=== PATIENT | female | born 1965 | race Caucasian/White ===

== ENCOUNTER → 2019-11-16 10:02 | Outpatient (CLI) | payer OTHER, SELFPAY ==
[2019-11-17 07:46] LABS: COVID19 Sendout Not Detected (Not Detect)
== END ==
PROVIDERS: Visit Provider Registered Nurse
DX: Z01.812 Encounter for preprocedural laboratory examination (principal)
CPT/HCPCS: 87635

== ENCOUNTER 2019-11-18 12:08 | Day surgery (SDC) | payer OTHER, SELFPAY ==
[2019-11-15 14:43] VITALS: BMI 30.5
[2019-11-18] VITALS (22 sets, daily range): BP systolic 116–138; BP diastolic 79–94; PULSE 74–120; RESP 10–19; TEMP 36.2–37; O2SAT 85–98; BMI 30.5
--- NOTE | 2019-11-18 | DI.RAD.S_ITS ---
PROCEDURE: XR LUMBAR SPINE 1V INDICATIONS: L4-5 LAMINECTOMY TECHNIQUE: Single lateral views of the lumbar spine was acquired. COMPARISON: None. FINDINGS: Bones: Lateral view shows a metallic probe at the posterior elements of L5, centered at the pedicle level. Soft tissues: Overlying bowel gas pattern is normal. No suspicious soft tissue calcifications. IMPRESSION: Metallic probe localization at the posterior elements of L5 parallel to the pedicles. Dictated by: Soto Ford M.D. on 11/18/2019 at 14:58 Approved by: Soto Ford M.D. on 11/18/2019 at 14:58
[2019-11-18] MEDS: LACTATED RINGERS 1,000 ML 42 ML IV ×2 (12:46→14:34)
[2019-11-18] MEDS: CELECOXIB 200 MG CAPSULE 400 MG PO (12:51)
[2019-11-18] MEDS: ACETAMINOPHEN 325 MG TABLET 975 MG PO (12:51)
[2019-11-18] MEDS: SCOPOLAMINE 1 PATCH TOP (12:51)
[2019-11-18] MEDS: MIDAZOLAM 2 MG/2 ML VIAL IV (12:52)
--- NOTE | 2019-11-18 13:01 | PM.PREOP ---
Pre-operative Note COVID-19 COVID-19 status: Negative Result date/Date tested (Pos, Neg/Pending): 11/16/19 Interval Note History & Physical reviewed/Exam performed by Physician: Yes Changes to H&P: No
[2019-11-18] MEDS: GABAPENTIN 300 MG CAPSULE PO (13:03)
--- NOTE | 2019-11-18 13:13 | SUR.OPER ---
Prone on spine table, head in foam head support, padded chest and pelvic supports, gel pad at knees, lower legs supported by pillows; nipples, genitalia and toes free of pressure, arms secured on foam padded arm boards at <90 degrees abduction. Tape over blanket at thigh secured to table.
[2019-11-18] MEDS: CEFAZOLIN 2 GM/100 ML FROZ.PIGGY IV (13:24)
[2019-11-18] MEDS: BUPIVACAINE 0.25% (PF) 8 ML, fentaNYL 100 MCG INJ (13:51)
[2019-11-18] MEDS: VANCOMYCIN 1,000 MG VIAL 1000 MG TOP (13:51)
[2019-11-18] MEDS: SODIUM CHLORIDE 0.9% 1,000 ML, GENTAMICIN 80 MG IRR (13:52)
[2019-11-18] MEDS: THROMBIN (RECOMBINANT) 5,000 UNIT VIAL 5000 UNIT TOP (13:57)
--- NOTE | 2019-11-18 15:17 | P.OP_ITS ---
Operative Date/Time/Diagnoses Date of procedure: 11/18/19 Time of procedure: 15:17 Pre-op diagnosis: Recurrent lumbar disc herniation with radiculopathy Post-op diagnosis: same Procedure & Clinicians Procedure: Revision left L4-5 laminectomy diskectomy Use of microscope Placement of epidural catheter Same procedure as scheduled: Yes Indications: [age] year old female with intractable pain from recurrent disc herniation. They had failed conservative management and requested operative intervention. Risks and benefits of surgery were discussed and appropriate consents were obtained. Surgeon: Nicholas Morgan [employer] Teacher: Martin Ca Anesthesia Type: General Operative Notes Findings: None Closure Type: primary Specimen(s): none sent Estimated Blood Loss (mL): 20 Procedure in detail: Patient was brought to the operating room and intubated on the table. A time-out was performed. There were rolled over the well-padded prone position on the [place] table. The back was prepped and draped in standard sterile fashion. Preoperative antibiotics were given. Using fluoroscopy, a 3 cm incision was made to the well-marked left of the midline at the L4-5 level utilizing her previous incision. We used Bovie to come down to and split the fascia. We then used the NuVasive MaXcess dilators with fluoroscopy and then opened our retractors. The soft tissue was cleared off with Bovie, a marker was placed, an x-ray was taken to confirm positioning. We then brought in the microscope. A combination of high-speed bur and Kerrison were used to perform a revision left-sided hemilaminotomy and hemifacetectomy. There was a large amount of scar tissue from her previous surgery but we finally were able to the isolate the traversing and exiting nerve roots. 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 We continued working through the scar 1st from underneath and then above until we finally could retract the dura and root medially and expose our disc herniation. The disc was cleared with bipolar. A scalpel used to perform an annulotomy and a pituitary was used to perform the diskectomy. Several very large fragments were removed. The ball probe was swept underneath the dura along the disc to make sure there were no further loose fragments. This was also placed into the disc and moved around to make sure there were no further loose fragments. Once everything was adequately decompressed, the wound was copiously irrigated. This completed the revision diskectomy. An epidural catheter was filled with 100 mcg of fentanyl and 8 mL of 0.25% Marcaine. The dura was carefully depressed under the laminotomy site and the catheter was advanced 6 cm cephalad. The retractor was removed and the fascia was closed. The epidural catheter was then injected without resistance and removed. Vancomycin powder was placed in the wound. Superficial and skin were closed. Sterile dressing was placed. The patient was then rolled over, transferred to the stretcher, and brought to recovery room without complications. Complications: none Post-operative Condition: stable Disposition: PACU Plan for aftercare: Outpatient. Begin activity as tolerated at her 1st follow- up visit.
[2019-11-18] MEDS: HYDROMORPHONE 2 MG INJ IV ×2 (15:44→15:54)
[2019-11-18] MEDS: ONDANSETRON 4 MG/2 ML INJ IV (15:44)
--- NOTE | 2019-11-18 15:58 | SUR.PHASEI ---
Titrated oxygen down from 4 liters nasal cannula to 2 liters nasal cannula.
--- NOTE | 2019-11-18 16:07 | SUR.PHASEI ---
Encouraged deep breathing from patient due to desaturation of oxygen level to 89% on 2 liters. Patient following commands. Assisted patient with turning over to check her surgical dressing. Dressing to low back area clean, dry and intact. No drainage noted..
[2019-11-18] MEDS: OXYCODONE IR 5 MG TABLET PO (16:14)
--- NOTE | 2019-11-18 16:30 | SUR.PHASEI ---
called [facility] to verify that presriptions were available. Notified . Turned oxygen off to assess room air saturation. Encouraged deep breathing. Patient following instructions.
--- NOTE | 2019-11-18 16:39 | SUR.PHASEI ---
Unable to wean patient off oxygen completely. Placed patient back on oxygen at 1 liter via nasal cannula, repositioned patient in bed to increase lung expansion, and removed scopolamine patch from behind right ear.
--- NOTE | 2019-11-18 16:52 | SUR.PHASEI ---
Saltine crackers provided.
--- NOTE | 2019-11-18 16:57 | SUR.PHASEI ---
When patient nods off, patient's oxygen drops down to 84% on room air. Placed patient back on oxygen at 3 liters nasal cannula. Oxygen saturation up to 94% but patient unable to sustain acceptable saturation level when dosing off. Assisted patient with sitting forward to auscultate breath sounds. Breath sounds clear and equal bilaterally.
--- NOTE | 2019-11-18 17:38 | SUR.PHASEII ---
1730 moved patient to phase 2 recovery and placed patient on continuous pulse ox. Patient continues to use Incentive Spirometer as instructed. Patient drowsy but awake. Oxygen saturation 96% on room air after using spirometer. Called and provided update and also reviewed discharge instructions.
--- NOTE | 2019-11-18 17:39 | SUR.PHASEII ---
Assisted patient to bathroom to void.
--- NOTE | 2019-11-18 18:08 | SUR.PHASEII ---
Assisted patient to vehicle via wheelchair. All instructions given to , Isaac.
== END 2019-11-18 18:00 | disposition home or self-care (01) ==
PROVIDERS: PCP Anesthesiology; Referring Provider Orthopaedic Surgery; Visit Provider Orthopaedic Surgery
PROC: (CPT 63042; principal; 2019-11-18 13:45)
DX: M51.16 Intervertebral disc disorders with radiculopathy, lumbar region (principal); Z98.890 Other specified postprocedural states; I10 Essential (primary) hypertension
CPT/HCPCS: 63042; 72020; 76000; J0330; J0690; J1100; J1170; J2250; J2405; J2704; J3010